=== PATIENT | male | born 1985 | race Caucasian/White ===

== ENCOUNTER 2017-03-25 16:39 | Emergency (ER) | payer MEDICAID ==
[~2017-03-25] VITALS: Ht 177.8 cm; Wt 77.9 kg
[2017-03-25 16:48] VITALS: BP 129/76; PULSE 101; PULSE 8; RESP 16; TEMP 98.3; O2SAT 97
[2017-03-25 16:55] VITALS: BP 152/71; PULSE 100; RESP 16; O2SAT 97
--- NOTE | 2017-03-25 17:07 | PD ---
HPI Chief Complaint: Injury Time Seen by Provider: 16:59 Travel History International Travel<30 days: No Contact w/Intl Traveler<30days: No Traveled to known affect area: No History of Present Illness HPI 31-year-old male presents emergency department for evaluation of left forearm pain. Patient reports a ladder fell onto the left forearm while at work. He reports the area began to swell and was immediately painful. He reports some tingling within his second and third digit when the injury occurred. He reports this altered sensation has improved with elevation of the extremity. He denies weakness of the extremity. He has full range of motion of the elbow, wrists, fingers. Pain is constant, nonradiating, worse with movement relieved with rest, severity is 5/10. PFSH Past Medical History Medical History: Denies Significant Hx Asthma: Yes Diminished Hearing: No GERD: Yes Past Surgical History Surgical History: No Previous Surgery Social History Alcohol Use: No Tobacco Use: Yes (1ppd smoke [employer]) Substance Use: No Allergies-Medications (Allergen,Severity, Reaction): Coded Allergies: No Known Allergies (Verified , 03/25/17) Reported Meds & Prescriptions Reported Meds & Active Scripts Active No Active Prescriptions or Reported Medications Review of Systems Except as stated in HPI: all other systems reviewed are Neg Physical Exam Narrative GENERAL: Well-nourished, well-developed patient. SKIN: Focused skin assessment warm/dry. HEAD: Normocephalic. Atraumatic EYES: No scleral icterus. No injection or drainage. NECK: Supple, trachea midline. No JVD or lymphadenopathy. CARDIOVASCULAR: Regular rate and rhythm without murmurs, gallops, or rubs. RESPIRATORY: Breath sounds equal bilaterally. No accessory muscle use. GASTROINTESTINAL: Abdomen soft, non-tender, nondistended. MUSCULOSKELETAL: No cyanosis, or edema. Left upper extremity: Notable swelling and TTP to the proximal dorsal aspect of the forearm. The compartments are soft. 2+ distal pulses. The extremity is warm. Brisk cap refill. Normal sensation. BACK: Nontender without obvious deformity. No midline spine tenderness. No CVA tenderness. Data Data Last Documented VS Vital Signs Date Time Temp Pulse Resp B/P (MAP) Pulse Ox O2 Delivery O2 Flow Rate FiO2 03/25/17 16:55 100 16 97 03/25/17 16:48 98.3 129/76 (93) Orders Orders Forearm (2vws) (8/24/17 ) Ketorolac Inj (Toradol Inj) (03/25/17 18:00) ^ Sling (03/25/17 17:51) [facility] Medical Decision Making Medical Screen Exam Complete: Yes Emergency Medical Condition: Yes Differential Diagnosis Contusion, forearm fracture, hematoma Narrative Course 31-year-old male with chief complaint of left forearm pain after a ladder fell onto the forearm at work. Patient has notable swelling and tenderness to the proximal dorsal aspect of the forearm. There is no deformity. The compartments are soft. Patient has normal sensation, full range of motion and 2 + distal pulses. X-ray of the left forearm pending X-ray of the left forearm negative for fracture. Patient will be treated for contusion. There are no signs symptoms of compartment syndrome. Patient advised of the signs and symptoms of compartment syndrome and the need for immediate return should he develop these. The extremity will be put in a sling. Advised ice and elevate the extremity. Patient verbalizes understanding and agrees to plan Diagnosis Primary Impression: Contusion of left forearm Qualified Codes: S50.12XA - Contusion of left forearm, initial encounter Referrals: Primary Care Physician Departure Forms: Tests/Procedures, Work Release Enter return to work date: Mar 29, 2017 Additional Instructions: Use a sling for comfort. Ice and elevate the extremity. Take [id number] Motrin 600-800 milligrams 68 hours as needed for pain. Avoid heavy lifting or strenuous activity. Scripts No Active Prescriptions or Reported Meds Disposition: 01 DISCHARGE HOME Condition: Stable Sneha Rhoades Mar 25, 2017 17:07
--- NOTE | 2017-03-25 17:46 | RADRPT ---
EXAM DATE/TIME: 03/25/2017 17:09 [facility] COMPARISON: No previous studies available for comparison. INDICATIONS : Patient states a heavy ladder fell on his left arm. Complains of pain. MEDICAL HISTORY : None. SURGICAL HISTORY : ENCOUNTER: Initial ACUITY: 1 day PAIN SCORE: 8/10 LOCATION: Left forearm FINDINGS: No definite fractures, or dislocations are identified. No definite lytic or sclerotic lesion is seen . CONCLUSION: Unremarkable study. Lissette Butler MD on March 25, 2017 at 17:43 Board Certified Radiologist. This report was verified electronically.
[2017-03-25] MEDS ORDERED: KETOROLAC TROMETHAMINE 60 MG/2 ML (IM) VIAL IM ONE (18:00)
== END 2017-03-25 18:12 | disposition home or self-care (01) ==
LOC: PHEFT 16:39
DX: S50.12XA Contusion of left forearm, initial encounter (principal); W20.8XXA Other cause of strike by thrown, projected or falling object, initial encounter; Y99.0 Civilian activity done for income or pay; F17.210 Nicotine dependence, cigarettes, uncomplicated
CPT/HCPCS: 73090; 96372; 99284; J1885

== ENCOUNTER 2017-11-03 15:46 | Emergency (ER) | payer MEDICAID ==
[~2017-11-03] VITALS: Ht 177.8 cm; Wt 79.0 kg
[2017-11-03 15:52] VITALS: BP 139/92; PULSE 89; RESP 16; TEMP 98.9; O2SAT 97
--- NOTE | 2017-11-03 16:52 | PD ---
HPI Chief Complaint: Cold / Flu Symptoms Time Seen by Provider: 16:20 Travel History International Travel<30 days: No Contact w/Intl Traveler<30days: No Traveled to known affect area: No History of Present Illness HPI 32-year-old male came to the emergency room with history of URI symptoms in the form of cough, nasal congestion, sneezing for past 3-4 days. Today he started having vomiting as well. Patient vomited twice. The last vomit was 3 hours prior to coming to the emergency room. Vital signs were stable. Patient denies any significant fever. His main concern is that his is and he wants to make sure that he does not have influenza. He did not appear to be in any distress. In fact he was on his cell phone when I went to see him. Currently patient says that he is hungry and not nauseous anymore. PFSH Past Medical History Narrative Medical List of his past medical, surgical, social and family history reviewed from the nursing note. Asthma: Yes Diminished Hearing: No GERD: Yes Social History Alcohol Use: No Tobacco Use: Yes (1/2PPD) Substance Use: No Allergies-Medications (Allergen,Severity, Reaction): Coded Allergies: No Known Allergies (Verified Adverse Reaction, Unknown, 11/03/17) Comments No known drug allergies. Reported Meds & Prescriptions Reported Meds & Active Scripts Active Zofran Odt (Ondansetron Odt) 4 Mg Tab 4 Mg SL Q6HR PRN Narrative Medication List of his home medications reviewed from the nursing note. Review of Systems Except as stated in HPI: all other systems reviewed are Neg HENT: Positive: Rhinorrhea, Congestion Gastrointestinal: Positive: Nausea, Vomiting Physical Exam Narrative GENERAL: Awake, alert, no obvious distress SKIN: Focused skin assessment warm/dry. HEAD: Atraumatic. Normocephalic. EYES: Pupils equal and round. No scleral icterus. No injection or drainage. ENT: No nasal bleeding or discharge. Mucous membranes pink and moist. NECK: Trachea midline. No JVD. CARDIOVASCULAR: Regular rate and rhythm. No murmur appreciated. RESPIRATORY: No accessory muscle use. Clear to auscultation. Breath sounds equal bilaterally. GASTROINTESTINAL: Abdomen soft, non-tender, nondistended. Hepatic and splenic margins not palpable. MUSCULOSKELETAL: No obvious deformities. No clubbing. No cyanosis. No edema. NEUROLOGICAL: Awake and alert. No obvious cranial nerve deficits. Motor grossly within normal limits. Normal speech. PSYCHIATRIC: Appropriate mood and affect; insight and judgment normal. Data Data Last Documented VS Vital Signs Date Time Temp Pulse Resp B/P (MAP) Pulse Ox O2 Delivery O2 Flow Rate FiO2 11/03/17 15:52 98.9 89 16 139/92 (108) 97 Orders Orders Influenzae A/B Antigen (11/03/17 16:59) Ed Discharge Order (11/03/17 18:37) MDM Medical Decision Making Medical Screen Exam Complete: Yes Emergency Medical Condition: Yes Medical Record Reviewed: Yes Differential Diagnosis URI, viral illness, influenza Narrative Course 5:29 PM awaiting for influenza results. Patient was given p.o. Zofran. If the influenza is negative patient will be discharged home. 6:37 PM flu swab is negative. Patient has not vomited anymore. I will discharge him home. Procedures EKG Prior to Arrival: No Diagnosis Primary Impression: Viral illness Additional Impression: Vomiting Qualified Codes: R11.2 - Nausea with vomiting, unspecified Referrals: Primary Care Physician 2 days Additional Instructions: Please return to the ER if condition worsens any other new concerns. Take the medication as per the prescription direction. Drink lots of fluid. You are contagious until your symptoms get better. Med/Other Pt SpecificInfo: Prescription(s) given Scripts Ondansetron Odt (Zofran Odt) 4 Mg Tab 4 MG SL Q6HR Y for Nausea/Vomiting, #10 TAB 0 Refills Prov: Issac Guy MD 11/03/17 Disposition: 01 DISCHARGE HOME Condition: Stable Issac Guy MD Nov 03, 2017 16:52
[2017-11-03] MEDS ORDERED: ZOFR4TAB3 SL (18:39)
== END 2017-11-03 18:44 | disposition home or self-care (01) ==
LOC: PHED 15:46
DX: B34.9 Viral infection, unspecified (principal); J45.909 Unspecified asthma, uncomplicated; K21.9 Gastro-esophageal reflux disease without esophagitis; F17.200 Nicotine dependence, unspecified, uncomplicated
CPT/HCPCS: 87804; 99283